=== PATIENT | female | born 1960 | race Caucasian/White ===

== ENCOUNTER 2024-08-24 02:05 | Emergency (ER) | payer OTHER, SELFPAY ==
[2024-08-24] VITALS (12 sets, daily range): BP systolic 125–159; BP diastolic 72–145; BMI 36.8
[2024-08-24] MEDS: DUONEB 3 ML INH (02:53)
--- NOTE | 2024-08-24 03:10 | ED.GENMED ---
History of Present Illness
<KEYANNA Mir - Last Filed: 08/24/24 03:53>
General
Chief Complaint: Numbness
Source: patient and family (daughter)
Exam Limitations: none
Time Seen by Provider: 08/24/24 02:48
Nursing documentation reviewed up to this point in time: agreed with
History of Present Illness
History of Present Illness:
Pt is a 63 y/o F with pmhx of DM, COPD, and OH in 2013 who presents with daughter who presents s/p fall secondary to leg weakness x 3 hrs ago. The pt's daughter reported that the pt was nauseous and attempted to go to the bathroom to throw up but
her legs gave out on her due to weakness and she fell. She hit the back of her head on the wall and fell forward onto her stomach. The pt has been having back pain and spasms for the past month that she has been treating with Flexeril and 4x steroid
dose packs. However, the weakness and leg numbness are new today. She also has pitting edema in both legs. Denies fever, changes in urination and bowel movement, calf pain.
The pt has been having constant chest pain, shortness of breath, and cough for the past month. The chest pain is worsened when laying down and better when sitting up. However, sitting up also causes exacerbation of her lower back pain. She has been
seen at urgent care and by multiple specialists for her chest pain and is being treated for pericarditis with Colchicine. She just started the Colchicine today and has had 2 doses. The pt has a history of DM that is being managed with diet. The pt
also just finished a 10 day course of Doxycycline for cellulitis on her left arm. The pt had a fall in March with head injury and was evaluated at [facility]. Head CT at the time was reportedly negative and she was treated with benedicto on her
posterior scalp. The pt has a pmhx of a right ankle fracture and normally has swelling in her right ankle.
Past History
<KEYANNA Mir - Last Filed: 08/24/24 03:53>
Past History
ED Past Medical History: COPD, NIDDM, OH (2014) and Psychiatric (anxiety, depression)
ED Past Surgical History: Cardiac (2x cardiac cath) and (2x)
Social History
Tobacco: Smoker (1 PPD)
Alcohol: None
Drug: None
Review of Systems
<KEYANNA Mir - Last Filed: 08/24/24 03:53>
Review of Systems
Allergies reviewed?: Yes
Constitutional: Reports no symptoms
EENT: Reports no symptoms
Respiratory: Reports cough and trouble breathing
Cardiac: Reports chest pain
ABD/GI: Reports nausea and vomiting
: Reports no symptoms
Musculoskeletal: Reports edema and back pain
Skin: Reports no symptoms
Neurological: Reports weakness and numbness
Endocrine: Reports no symptoms
Hematologic/Lymphatic: Reports no symptoms
Psychiatric: Reports no symptoms
Phy Exam
<KEYANNA Mir - Last Filed: 08/24/24 03:53>
General Physical Exam
General Presentation: moderate distress
General age: appears stated age
General Skin: warm and dry
General Habitus: obese
General Mental: alert
General Hydration: appears well hydrated
ENT Exam
ENT Exam: EOMI, TM's normal, pharynx normal and neck supple
Eye Exam
Eye Exam: PERRL, EOMI, cornea clear and conjunctiva normal
Cardiovascular Exam
Cardiovascular Exam: normal peripheral pulses and occasionally irregular
Pulmonary Exam
Pulmonary Exam: generalized wheezing
Respiratory Effort: poor respiratory effort
Cough: hacking cough
Respirations: moderate effort
Breath Sounds: Wheeze: generalized and Rhonchi: generalized
Gastrointestinal Exam
Gastrointestinal Exam: soft and non distended
Neurological Exam
Neurological Exam: alert, oriented x3 and speech normal
Mental
Mental Status: oriented to person, oriented to place and oriented to time
Sensory
Sensory Exam: decreased sensation (bilateral lower extremities)
Reflexes
Babinski: normal: Bilateral
Musculoskeletal Exam
Musculoskeletal Exam: back pain, back tenderness, edema (bilateral lower extremities), joint swelling (bilateral knees, right ankle) and neuro vasc intact
Skin Exam
Skin Exam: normal color and warm/dry
Psychiatric Exam
Psychiatric Exam: normal mood/affect
Course
<KEYANNA Mir - Last Filed: 08/24/24 03:53>
Orders/Labs/Results
Orders:
Orders
08/24/24 02:48
Ipratropium/Albuterol Sulfate [Duoneb] 3 ml .ROUTE .STK-MED ONE
08/24/24 02:52
Ipratropium/Albuterol Sulfate [Duoneb] 3 ml INH R NOW ONE
08/24/24 03:16
Electrocardiogram (*1) Urgent
Reason for Study: Chest Pain
CT Head W/o Iv Contrast Urgent
Comment:
Reason For Exam: Fall with head injury
08/24/24 03:17
EKG- Treatment ONCE
08/24/24 03:22
CMP [Comprehensive Metabolic Panel] Urgent
Complete Blood Count/With Diff Urgent
Troponin I Urgent
08/24/24 03:29
CR Chest - 2 Views Urgent
Comment:
Reason For Exam: chest pain, shortness of breath
08/24/24 05:03
MR Lumbar Without Contrast Urgent
Comment:
Reason For Exam: no feeling in legs after fall
Recent pill cam endoscopy?: No
08/24/24 05:05
MR Thoracic Spine Without Urgent
Comment:
Reason For Exam: fall with leg paralysis
Recent pill cam endoscopy?: No
08/24/24 Breakfast
NPO
Allow oral meds: Yes
Allow clear liquids: Sips of Clears
08/24/24 07:51
CRP [C-Reactive Protein] Urgent
ESR [Erythrocyte Sed Rate] Urgent
Blood Culture Urgent
DANIEL Source: Blood/Venous
Specimen Description:
08/24/24 08:56
Blood Culture Urgent
DANIEL Source: Blood/Venous
Specimen Description:
Abnormal Lab Results
08/24/24 08/24/24
03:22 07:51
WBC 11.0 H 10^3/uL
(4.8-10.8)
RBC 3.77 L 10^6/uL
(4.20-5.40)
Hgb 11.9 L g/dL
(12.0-16.0)
Hct 34.9 L %
(37.0-47.0)
MCH 31.6 H pg
(27.0-31.0)
Abs Immat Gran (auto) 0.1 H 10^3/uL
(0-0.05)
Absolute Neuts (auto) 9.4 H 10^3/uL
(1.4-6.5)
Absolute Lymphs (auto) 0.7 L 10^3/uL
(1.2-3.4)
Absolute Monos (auto) 0.8 H 10^3/uL
(0.1-0.6)
Immature Gran % 1.0 H %
(0-0.5)
Neutrophils % 85.3 H %
(42.2-75.2)
Lymphocytes % 6.6 L %
(20.5-51.1)
ESR 51 H mm/hour
(0-20)
Chloride 108 H mmol/L
(98-107)
BUN 20 H mg/dl
(7-17)
Glucose 164 H mg/dl
(70-99)
C-Reactive Protein 31.90 H mg/L
(0.0-10.00)
Total Protein 6.1 L g/dl
(6.3-8.2)
Albumin 3.3 L g/dl
(3.5-5.0)
08/24/24 03:22
08/24/24 03:22
Vital Signs
Initial and Last Documented VS:
Initial Vital Signs
Temp Pulse Resp BP Pulse Ox
97.8 F 89 25 141/72 98
08/24/24 02:22 08/24/24 02:22 08/24/24 02:22 08/24/24 02:22 08/24/24 02:22
Last Documented Vital Signs
Temp Pulse Resp BP Pulse Ox
98.6 F 88 22 154/80 95
08/24/24 07:36 08/24/24 09:00 08/24/24 09:00 08/24/24 09:00 08/24/24 09:00
<Jewel Ho, DO - Last Filed: 08/24/24 05:08>
Orders/Labs/Results
Orders:
Orders
08/24/24 02:48
Ipratropium/Albuterol Sulfate [Duoneb] 3 ml .ROUTE .STK-MED ONE
08/24/24 02:52
Ipratropium/Albuterol Sulfate [Duoneb] 3 ml INH R NOW ONE
08/24/24 03:16
Electrocardiogram (*1) Urgent
Reason for Study: Chest Pain
CT Head W/o Iv Contrast Urgent
Comment:
Reason For Exam: Fall with head injury
08/24/24 03:17
EKG- Treatment ONCE
08/24/24 03:22
CMP [Comprehensive Metabolic Panel] Urgent
Complete Blood Count/With Diff Urgent
Troponin I Urgent
08/24/24 03:29
CR Chest - 2 Views Urgent
Comment:
Reason For Exam: chest pain, shortness of breath
08/24/24 05:03
MR Lumbar Without Contrast Urgent
Comment:
Reason For Exam: no feeling in legs after fall
Recent pill cam endoscopy?: No
08/24/24 05:05
MR Thoracic Spine Without Urgent
Comment:
Reason For Exam: fall with leg paralysis
Recent pill cam endoscopy?: No
08/24/24 Breakfast
NPO
Allow oral meds: Yes
Allow clear liquids: Sips of Clears
08/24/24 07:51
CRP [C-Reactive Protein] Urgent
ESR [Erythrocyte Sed Rate] Urgent
Blood Culture Urgent
DANIEL Source: Blood/Venous
Specimen Description:
08/24/24 08:56
Blood Culture Urgent
DANIEL Source: Blood/Venous
Specimen Description:
Abnormal Lab Results
08/24/24 08/24/24
03:22 07:51
WBC 11.0 H 10^3/uL
(4.8-10.8)
RBC 3.77 L 10^6/uL
(4.20-5.40)
Hgb 11.9 L g/dL
(12.0-16.0)
Hct 34.9 L %
(37.0-47.0)
MCH 31.6 H pg
(27.0-31.0)
Abs Immat Gran (auto) 0.1 H 10^3/uL
(0-0.05)
Absolute Neuts (auto) 9.4 H 10^3/uL
(1.4-6.5)
Absolute Lymphs (auto) 0.7 L 10^3/uL
(1.2-3.4)
Absolute Monos (auto) 0.8 H 10^3/uL
(0.1-0.6)
Immature Gran % 1.0 H %
(0-0.5)
Neutrophils % 85.3 H %
(42.2-75.2)
Lymphocytes % 6.6 L %
(20.5-51.1)
ESR 51 H mm/hour
(0-20)
Chloride 108 H mmol/L
(98-107)
BUN 20 H mg/dl
(7-17)
Glucose 164 H mg/dl
(70-99)
C-Reactive Protein 31.90 H mg/L
(0.0-10.00)
Total Protein 6.1 L g/dl
(6.3-8.2)
Albumin 3.3 L g/dl
(3.5-5.0)
08/24/24 03:22
08/24/24 03:22
Vital Signs
Initial and Last Documented VS:
Initial Vital Signs
Temp Pulse Resp BP Pulse Ox
97.8 F 89 25 141/72 98
08/24/24 02:22 08/24/24 02:22 08/24/24 02:22 08/24/24 02:22 08/24/24 02:22
Last Documented Vital Signs
Temp Pulse Resp BP Pulse Ox
98.6 F 88 22 154/80 95
08/24/24 07:36 08/24/24 09:00 08/24/24 09:00 08/24/24 09:00 08/24/24 09:00
Sharlalt;Raheel Simon PA-C - Last Filed: 08/25/24 09:14>
Orders/Labs/Results
Orders:
Orders
08/24/24 02:48
Ipratropium/Albuterol Sulfate [Duoneb] 3 ml .ROUTE .STK-MED ONE
08/24/24 02:52
Ipratropium/Albuterol Sulfate [Duoneb] 3 ml INH R NOW ONE
08/24/24 03:16
Electrocardiogram (*1) Urgent
Reason for Study: Chest Pain
CT Head W/o Iv Contrast Urgent
Comment:
Reason For Exam: Fall with head injury
08/24/24 03:17
EKG- Treatment ONCE
08/24/24 03:22
CMP [Comprehensive Metabolic Panel] Urgent
Complete Blood Count/With Diff Urgent
Troponin I Urgent
08/24/24 03:29
CR Chest - 2 Views Urgent
Comment:
Reason For Exam: chest pain, shortness of breath
08/24/24 05:03
MR Lumbar Without Contrast Urgent
Comment:
Reason For Exam: no feeling in legs after fall
Recent pill cam endoscopy?: No
08/24/24 05:05
MR Thoracic Spine Without Urgent
Comment:
Reason For Exam: fall with leg paralysis
Recent pill cam endoscopy?: No
08/24/24 Breakfast
NPO
Allow oral meds: Yes
Allow clear liquids: Sips of Clears
08/24/24 07:51
CRP [C-Reactive Protein] Urgent
ESR [Erythrocyte Sed Rate] Urgent
Blood Culture Urgent
DANIEL Source: Blood/Venous
Specimen Description:
08/24/24 08:56
Blood Culture Urgent
DANIEL Source: Blood/Venous
Specimen Description:
Abnormal Lab Results
08/24/24 08/24/24
03:22 07:51
WBC 11.0 H 10^3/uL
(4.8-10.8)
RBC 3.77 L 10^6/uL
(4.20-5.40)
Hgb 11.9 L g/dL
(12.0-16.0)
Hct 34.9 L %
(37.0-47.0)
MCH 31.6 H pg
(27.0-31.0)
Abs Immat Gran (auto) 0.1 H 10^3/uL
(0-0.05)
Absolute Neuts (auto) 9.4 H 10^3/uL
(1.4-6.5)
Absolute Lymphs (auto) 0.7 L 10^3/uL
(1.2-3.4)
Absolute Monos (auto) 0.8 H 10^3/uL
(0.1-0.6)
Immature Gran % 1.0 H %
(0-0.5)
Neutrophils % 85.3 H %
(42.2-75.2)
Lymphocytes % 6.6 L %
(20.5-51.1)
ESR 51 H mm/hour
(0-20)
Chloride 108 H mmol/L
(98-107)
BUN 20 H mg/dl
(7-17)
Glucose 164 H mg/dl
(70-99)
C-Reactive Protein 31.90 H mg/L
(0.0-10.00)
Total Protein 6.1 L g/dl
(6.3-8.2)
Albumin 3.3 L g/dl
(3.5-5.0)
08/24/24 03:22
08/24/24 03:22
Vital Signs
Initial and Last Documented VS:
Initial Vital Signs
Temp Pulse Resp BP Pulse Ox
97.8 F 89 25 141/72 98
08/24/24 02:22 08/24/24 02:22 08/24/24 02:22 08/24/24 02:22 08/24/24 02:22
Last Documented Vital Signs
Temp Pulse Resp BP Pulse Ox
98.6 F 88 22 154/80 95
08/24/24 07:36 08/24/24 09:00 08/24/24 09:00 08/24/24 09:00 08/24/24 09:00
<KEYANNA Mir - Last Filed: 08/24/24 03:53>
MDM/Problems Addressed
Differential Diagnosis Includes:
Fall with head injury
Uncontrolled diabetes
Back pain
COPD
Pericarditis
<KEYANNA Mir - Last Filed: 08/24/24 03:53>
*Critical Care Note
Total Time (30-74mins, 75-104mins- exclusive of procedures): Not Applicable
<Jewel Ho DO - Last Filed: 08/24/24 05:08>
Update Note
Update Note:
08/24/2024 0506 AM: Spoke with Brad Richards, radiologist, who agreed that patient needed an MRI of the thoracic and lumbar spines for this new onset numbness and paralysis.
<Raheel Simon PA-C - Last Filed: 08/25/24 09:14>
Update Note
Update Note:
08/24/2024 0506 AM: Spoke with Brad Richards, radiologist, who agreed that patient needed an MRI of the thoracic and lumbar spines for this new onset numbness and paralysis.
08/25/2024 9:15 AM: Blood cultures returned positive for gram-positive cocci. Upon further review, patient was transferred to [facility] to the ICU room 2005. The results were faxed to their unit for their review. Fax #[phone]
ED Attending Note
<KEYANNA Mir - Last Filed: 08/24/24 03:53>
-
Portions of this chart may have been created with voice recognition software.� Occasional wrong word or��sound alike� substitutions may have occurred due to the inherent limitations of voice recognition software.
<Jewel Ho DO - Last Filed: 08/24/24 05:08>
ED Attending Note
Patient seen and examined by attending physician: Yes
I performed the substantive portion of visit, reviewed & personally made and approve the management plan that is documented in note by myself or PAMELA.: Yes
ED Attending Note:
Pleasant 63-year-old female that presents with leg weakness that has been present for the last 3 hours. She states that she fell secondary to this weakness. She came to the emergency department because she has been unable to move or feel her legs.
She attributes this to her starting on colchicine by her behavioral health consultant. Patient denies fever or chills. Reports no chest pain or shortness of breath. Patient states that she has not been formally diagnosed with COPD but states that she typically
has some difficulty breathing. She is still a smoker stating that she smokes about a pack per day. Patient was seen in conjunction with the PA student. I have reviewed and agree with the history and treatment plan presented. On my independent
physical exam, patient is awake, alert, and oriented x3, moderate acute distress. Heart is regular rate and rhythm. Skin is warm and dry. Patient is obese. She does have Babinski reflexes that are normal in her lower extremities. She states
that she has no sensation but does retract to pain.
Discharge Plan
Departure
Patient Disposition: Admit
Date of Disposition: 08/24/24
Time of Disposition: 05:07
Admit to: Telemetry
Presentation/result/management discussed w/ accepting MD/DO: Hospitalist
Discharge Problem:
Lower extremity paralysis, Bilateral leg paresthesia, Low back pain, Fall
Prescriptions:
No Action
cyclobenzaprine [Flexeril] 10 mg Tablet
10 mg PO TID
atorvastatin [Lipitor] 40 mg Tablet
40 mg PO QPM
carvedilol [Coreg] 25 mg Tablet
25 mg PO BID
isosorbide mononitrate [Imdur] 30 mg Tablet Extended Release 24 Hr
30 mg PO DAILY
aspirin 81 mg Tablet,Delayed Release (Dr/Ec)
81 mg PO DAILY
pantoprazole [Protonix] 40 mg Tablet,Delayed Release (Dr/Ec)
40 mg PO DAILY
verapamil 240 mg Tablet Extended Release
240 mg PO DAILY
methylprednisolone [Medrol (Andry)] 4 mg Tablets,Dose Pack
0 mg PO PER PKG DIR
colchicine 0.6 mg Tablet
0.6 mg PO BID
ibuprofen 800 mg Tablet
800 mg PO TID
cyanocobalamin (vitamin B-12) 1,000 mcg Tablet
1,000 mcg PO DAILY
cholecalciferol (vitamin D3) [Vitamin D3] 25 mcg (1,000 unit) Tablet
25 mcg PO DAILY
Referrals:
Ortega Decker MD [Family Provider] -
Interventions
Interventions:
*Risk Screen - Suicide Last Done: 08/24/24 03:04
*General Assessment Last Done: 08/24/24 03:02
*Neglect/Abuse Screening Last Done: 08/24/24 03:03
ED- Fall Risk Assessment Last Done: 08/24/24 03:04
*ED COVID-19 Vaccine History Last Done: 08/24/24 03:02
*Nursing Disposition Last Done: 08/24/24 09:54
ED- Neurological Assessment Last Done: 08/24/24 08:47
Discharge Date and Time
Discharge Date/Time: 08/24/24 09:55
Print Language: CZECH
[2024-08-24 03:32] LABS: % Basophils 0.2 % (0-2); % Lymphocytes 6.6 % (20.5-51.1); % Monocytes 6.9 % (1.7-9.3); % Neutrophils 85.3 % (42.2-75.2); Absolute Immature Granulocytes 0.1 10^3/uL (0-0.05); Absolute Lymphocytes 0.7 10^3/uL (1.2-3.4); Absolute Monocytes 0.8 10^3/uL (0.1-0.6); Absolute Neutrophils 9.4 10^3/uL (1.4-6.5); Hematocrit 34.9 % (37.0-47.0); Hemoglobin 11.9 g/dL (12.0-16.0); Mean Corp Hgb Conc. 34.1 g/dL (33.0-37.0); Mean Corpuscular Hgb 31.6 pg (27.0-31.0); Mean Corpuscular Volume 92.6 fL (81.0-99.0); Mean Platelet Volume 9.4 fL (7.4-10.4); Nucleated Red Blood Cells % 0 %; Platelet Count 263 10^3/uL (130-400); Red Blood Cell Count 3.77 10^6/uL (4.20-5.40); Red Cell Dist. Width 14.3 % (11.5-14.5)
[2024-08-24 03:52] LABS: Troponin I < 0.012 ng/ml
[2024-08-24 03:55] LABS: ALT (SGPT) 17 U/L (0-35); AST (SGOT) 18 U/L (14-36); Albumin 3.3 g/dl (3.5-5.0); Alkaline Phosphatase 88 U/L (38-126); Blood Urea Nitrogen 20 mg/dl (7-17); Calcium 9.1 mg/dl (8.4-10.2); Carbon Dioxide 23 mmol/L (22-30); Chloride 108 mmol/L (98-107); Estimated Creatinine Clearance 114 ml/min; Glucose 164 mg/dl (70-99); Potassium 4.3 mmol/L (3.5-5.1); Sodium 141 mmol/L (135-145); Total Bilirubin 0.6 mg/dl (0.2-1.3); Total Protein 6.1 g/dl (6.3-8.2); eGFR > 60.00
--- NOTE | 2024-08-24 07:32 | CON.HOSP ---
Consultation
-
Date/Time Consultation Requested: 08/24/24 5:10 AM
Date/Time Consultation Performed: 08/24/24 6:30 AM
Requesting Provider: Dr. Ho
Performing Provider: Dr. Keyes
Reason for Consultation: LE Weakness
Family Physician
-
Family Physician: Ortega Decker
Chief Complaint
-
LE Weakness
History of Present Illness
Patient is a 63y F with PMH significant for ASCVD, hypertension, diet-controlled DM-II and obesity who presents to ED complaining of LE numbness and weakness. Patient states that she has been having back pain and chest pain for approximately one
month now. She states that she simply woke one morning with these symptoms and denies any noted fall, injury, trauma, etc.
She has had pain in a band-like fashion around the upper back and the chest. She has been seen by her physicians including Cardiology for evaluation of these symptoms.
She has been treated with 4 separate courses of steroid dose packs. She states that she has had temporary relief the first two days of each pack; however, her symptoms quickly returned.
Patient notes that pain has been worse with standing, deep breathing, etc. She has had worsening gait due to discomfort.
She also notes that she has been taking ibuprofen 800mg several times a day for control of her pain. This is in addition to steroid dose packs.
She had a TRACE about one week ago in the mid-thoracic region with no relief.
This evening, patient was walking in her home when her legs suddenly gave way and she fell to the floor.
She was unable to get up unassisted. She felt numbness and tingling in both legs.
Family responded and noted that patient was very weak in the legs. She had minimal lower leg and foot movement at that time.
911 was called and patient brought to the ED for further evaluation.
In that time, her weakness has significantly progressed. She now has minimal movement only of the toes on each foot.
She has numbness to the mid-chest area.
Patient also reports taking a course of doxycycline about 1-2 weeks ago for cellulitis of the arm.
She was prescribed doxycycline yesterday for presumed pericarditis - apparently on the basis on her ongoing chest pain.
Medical History
Past Medical History
Additional Past Medical History:
ASCVD
Hypertension
Diet-Controlled DM-II
Obesity
Additional Past Surgical History:
Cardiac Cath x 2 - No Stents
Social History
Tobacco: Smoker (Current every day smoker. 1 ppd)
Alcohol: None
Drug: None
Family History
Family History: Reviewed & Not Pertinent
Allergies / Home Medications
Allergies reflects when Allergies were last updated in [facility].
Home Medications with original date entered in [facility]
Allergy/Medication List:
Allergies
Allergy/AdvReac Type Severity Reaction Status Date / Time
Penicillins Allergy Unknown Verified 08/24/24 03:37
Home Medications
Flexeril 10 mg PO TID 08/24/24
aspirin 81 mg PO DAILY 08/24/24
atorvastatin 40 mg PO DAILY 08/24/24
carvedilol 25 mg PO BID 08/24/24
colchicine 0.6 mg PO DAILY 08/24/24
cyclobenzaprine 10 mg PO DAILY 08/24/24
isosorbide mononitrate 30 mg PO DAILY 08/24/24
pantoprazole 40 mg PO DAILY 08/24/24
prednisolone 4 mg PO DAILY 08/24/24
verapamil 240 mg PO DAILY 08/24/24
Review of Systems
-
History Source: Patient
A 12 point Review of Systems was completed except as noted: Yes
Constitutional: Denies Fever or Chills
Respiratory: Denies Cough or Trouble Breathing
Cardiac: Reports Chest Pain; Denies Palpitations or Syncope
Abdomen/GI: Reports Nausea; Denies Abdominal Pain, Vomiting or Diarrhea
: Denies Dysuria, Frequency or Flank Pain
Musculoskeletal: Reports Other (Back Pain); Denies Joint Pain or Edema
Neurological: Reports Weakness and Numbness; Denies Dizzy or Headache
Psych: Denies Depression or Anxiety
Physical Exam
Vital Signs
Vital Signs
Temp Pulse Resp BP Pulse Ox
97.8 F 85 21 156/90 94
08/24/24 02:50 08/24/24 05:30 08/24/24 05:30 08/24/24 05:00 08/24/24 05:30
Physical Exam
General: Other (63y F in mild distress due to back pain.)
HEENT: Moist Mucous Membranes and PERRLA
Respiratory: Clear and Other (Decreased at bases - otherwise clear.); Negative Wheezes, Rales or Rhonchi
Cardiac: S1/S2 and Regular Rhythm (with occasional ectopy.); Negative Murmur
GI: Soft, Non Tender, Non Distended and Normal Bowel Sounds
Musculoskeletal: No Clubbing, No Cyanosis and No Edema
Neuro: AO x 3 and Other (Patient has a sensory level at T6 with absent sensation caudal to this. Marked weakness in the b/l LE with perhaps 1/5 strength at the foot / ankle only.)
Laboratory Results
-
Laboratory Results
08/24/24 03:22
08/24/24 03:22
Total Bilirubin 0.6 mg/dl (0.2-1.3) 08/24/24 03:22
AST 18 U/L (14-36) 08/24/24 03:22
ALT 17 U/L (0-35) 08/24/24 03:22
Alkaline Phosphatase 88 U/L (38-126) 08/24/24 03:22
Troponin I < 0.012 ng/ml 08/24/24 03:22
Impression / Plan
-
A/P: Patient is a 63y F with PMH significant for ASCVD, HTN and DM-II who presents to ED complaining of bilateral LE numbness and weakness s/p fall this evening.
T6 Sensory Level
Bilateral LE Numbness / Weakness
Back Pain / Chest Pain
- Suspect that recent symptoms of back / chest pain were related to T6 vertebral process / radicular pain.
- Now this evening with abrupt LE weakness, collapse and progressive sensory impairment to that level.
- MRI performed in the ED this AM confirming cord impairment at T6.
- Reviewed with Neurosurgery who recommend transfer to [facility] for further evaluation and treatment.
- Discussed findings, plan, etc with patient and family in detail.
- Plan for transfer to [facility] this AM under the service of Dr. Orellana.
- Send MR imaging with patient.
- Check inflammatory markers, blood cultures, etc now.
- Follow for any changes / progression in neurologic exam pending transfer.
- Would discontinue majority of recent medications (NSAIDs, colchicine, etc) added for other potential sources of her pain syndrome.
[2024-08-24 08:20] LABS: Erythrocyte Sed Rate 51 mm/hour (0-20)
== END 2024-08-24 09:55 | disposition short-term general hospital (02) ==
LOC: EMR 02:05
PROVIDERS: EMERGENCY PHYSICIAN Student in an Organized Health Care Education/Training Program; FAMILY PHYSICIAN Internal Medicine; OTHER PHYSICIAN Hospitalist
DX: M54.50 Low back pain, unspecified (principal); S09.90XA Unspecified injury of head, initial encounter; R20.2 Paresthesia of skin; R11.2 Nausea with vomiting, unspecified; R07.89 Other chest pain; R20.0 Anesthesia of skin; G83.10 Monoplegia of lower limb affecting unspecified side; R60.0 Localized edema; M62.81 Muscle weakness (generalized); W18.39XA Other fall on same level, initial encounter; I31.9 Disease of pericardium, unspecified; E11.9 Type 2 diabetes mellitus without complications; J44.9 Chronic obstructive pulmonary disease, unspecified; F41.9 Anxiety disorder, unspecified; F32.A Depression, unspecified; M19.90 Unspecified osteoarthritis, unspecified site; E66.9 Obesity, unspecified; I25.10 Atherosclerotic heart disease of native coronary artery without angina pectoris; I10 Essential (primary) hypertension; F17.210 Nicotine dependence, cigarettes, uncomplicated; I25.2 Old myocardial infarction; Z79.82 Long term (current) use of aspirin; Z79.899 Other long term (current) drug therapy; Z88.0 Allergy status to penicillin
CPT/HCPCS: 99285; 94640; 70450; 71046; 72146; 72148; 80053; 84484; 85025; 85652; 86140; 87040; 87150; 87186; 87205; 93005